=== PATIENT | male | born 1955 | race Caucasian/White ===

== ENCOUNTER 2019-12-09 16:47 | Inpatient (IN) ==
[2019-12-09 18:11] LABS: ABS Basophils 0.1 10^3/ul (0-0.2); ABS Eosinophils 0.1 10^3/ul (0-0.6); ABS Lymphocytes 1.5 10^3/ul (1.0-4.8); ABS Monocytes 0.6 10^3/ul (0-0.8); Eosinophil % 1.2 %; Hematocrit 40 % (42-52); Hemoglobin 13.5 g/dL (14.0-18.0); Lymphocyte % 21.9 %; Mean Corpuscular HGB Conc 34 g/dL (31-36); Mean Corpuscular Hemoglobin 30 pg (27-31); Mean Corpuscular Volume 88 fL (80-94); Mean Platelet Volume 7.6 fL (7.4-10.4); Nucleated Red Blood Cells % 0.1; Platelet Count 193 10^3/uL (150-450); Red Blood Count 4.51 10^6 /uL (4.18-5.48); Red Cell Distribution Width 15 % (10-15); White Blood Count 6.8 10^3/uL (3.5-10.8)
[2019-12-09 18:27] LABS: ALT 17 U/L (7-52); Albumin 2.9 g/dL (3.2-5.2); Albumin/Globulin Ratio 0.9 (1-3); Alkaline Phosphatase 86 U/L (34-104); BUN/Creatinine Ratio 20.7 (8-20); Blood Urea Nitrogen 25 mg/dL (6-24); CO2 Carbon Dioxide 33 mmol/L (22-32); Calcium 8.7 mg/dL (8.6-10.3); Chloride 95 mmol/L (101-111); Creatine Kinase 53 U/L (10-223); EGFR African American 73.1 (>60); EGFR Non-African American 60.4 (>60); Globulin 3.2 g/dL (2-4); Glucose 154 mg/dL (70-100); Sodium 135 mmol/L (135-145); Total Protein 6.1 g/dL (6.4-8.9)
[2019-12-09] MEDS: NS 0.9% 500 ml BAG 500 ML IV ONE ×2 (18:41→18:54)
[2019-12-09 18:44] LABS: Anion Gap 7 mmol/L (2-11); Troponin I 0.03 ng/mL (<0.03)
[2019-12-09 19:14] LABS: TSH (Thyroid Stimulating Horm) 6.02 mcIU/mL (0.34-5.60)
[2019-12-09 19:19] LABS: Activated Partial Thrombo Time 34.9 seconds (26.0-38.0)
[2019-12-09 19:45] LABS: CKMB ng/mL 3.3 ng/mL (0.6-6.3)
[2019-12-09] MEDS ORDERED: Dextrose 50% Syringe 50 ml 25 GM/50 ML SYRINGE IV PUSH PRN (19:48)
[2019-12-09] MEDS ORDERED: Ondansetron 4 mg VIAL 2 MG/ML 2 ml VIAL IV PRN (19:48)
[2019-12-09] MEDS ORDERED: NS 0.9% 1000 ml BAG 1,000 ML IV SCH (20:00)
[2019-12-09 20:02] LABS: INR 1.34 (0.82-1.09)
[2019-12-09 20:11] LABS: C Reactive Protein 6.43 mg/L (<8.01)
[2019-12-09 20:22] LABS: AST Redraw 24 U/L (13-39); Potassium Redraw 3.6 mmol/L (3.5-5.0)
[2019-12-09] MEDS ORDERED: Iodixanol (CONTRAST) 320 MG/ML 100 ML SDV IV ONE (20:54)
[2019-12-09 21:00] LABS: Erythrocyte Sed Rate 15 mm/Hr (0-19)
[2019-12-09 21:09] LABS: Troponin I 0.03 ng/mL (<0.03)
[2019-12-09] MEDS ORDERED: NS 0.9% 500 ml BAG 500 ML IV ONE (21:58)
[2019-12-09] MEDS ORDERED: Digoxin IV 0.5 MG/2 ML AMP (0.25 MG/ML) IV SLOW PU ONE (22:03)
[2019-12-10] MEDS: Heparin 5000 UNITS/ML VIAL(*) 1 ml vial SUBCUT SCH ×4 (01:44→21:15)
[2019-12-10] MEDS ORDERED: NS 0.9% 500 ml BAG 500 ML IV ONE (02:15)
[2019-12-10 06:14] LABS: ABS Basophils 0.1 10^3/ul (0-0.2); ABS Eosinophils 0.1 10^3/ul (0-0.6); ABS Lymphocytes 1.2 10^3/ul (1.0-4.8); ABS Monocytes 0.4 10^3/ul (0-0.8); Eosinophil % 1.8 %; Hematocrit 35 % (42-52); Hemoglobin 11.7 g/dL (14.0-18.0); Lymphocyte % 24.2 %; Mean Corpuscular HGB Conc 34 g/dL (31-36); Mean Corpuscular Hemoglobin 30 pg (27-31); Mean Corpuscular Volume 88 fL (80-94); Mean Platelet Volume 7.6 fL (7.4-10.4); Platelet Count 172 10^3/uL (150-450); Red Blood Count 3.94 10^6 /uL (4.18-5.48); Red Cell Distribution Width 15 % (10-15); White Blood Count 5.1 10^3/uL (3.5-10.8)
[2019-12-10 06:19] LABS: INR 1.37 (0.82-1.09)
[2019-12-10 06:31] LABS: BUN/Creatinine Ratio 20.4 (8-20); Calcium 7.8 mg/dL (8.6-10.3); EGFR Non-African American 72.7 (>60); Potassium 3.1 mmol/L (3.5-5.0)
[2019-12-10] MEDS: Insulin LISPRO 100 units/ml(*) SUBCUT SCH ×3 (09:33→17:04)
[2019-12-10] MEDS: Aspirin EC 81 mg TAB.EC (enteric coated) PO SCH (09:34)
[2019-12-10] MEDS: Insulin GLARGINE 100 un/ml (*) 10 ml VIAL SUBCUT SCH (09:34)
[2019-12-10] MEDS: DULoxetine DR 60 mg CAP PO SCH (09:35)
[2019-12-10] MEDS: KCL 20 MEQ/100 ML IVPREMIX 20 MEQ/100 ML BAG IV SCH ×3 (11:21→15:19)
[2019-12-10] MEDS: CMCS:Pravastatin 20 mg TAB (NF) PO SCH (11:21)
[2019-12-10 14:07] LABS: Body Fluid Source Peritonial Fluid
[2019-12-10 14:53] LABS: Body Fluid Mono 68 %; Body Fluid Other Cells 14
[2019-12-10] MEDS ORDERED: Metoprolol Tartrate 5 mg VIAL 5 ml VIAL (1 mg/ml) IV ONE (19:58)
[2019-12-11] MEDS: Heparin 5000 UNITS/ML VIAL(*) 1 ml vial SUBCUT SCH ×3 (05:37→21:02)
[2019-12-11 07:22] LABS: ABS Lymphocytes 0.9 10^3/ul (1.0-4.8); ABS Monocytes 0.4 10^3/ul (0-0.8); Eosinophil % 0.7 %; Hematocrit 36 % (42-52); Hemoglobin 12.4 g/dL (14.0-18.0); Lymphocyte % 15.5 %; Mean Corpuscular HGB Conc 34 g/dL (31-36); Mean Corpuscular Hemoglobin 30 pg (27-31); Mean Corpuscular Volume 87 fL (80-94); Mean Platelet Volume 7.6 fL (7.4-10.4); Nucleated Red Blood Cells % 0.1; Platelet Count 169 10^3/uL (150-450); Red Blood Count 4.16 10^6 /uL (4.18-5.48); Red Cell Distribution Width 15 % (10-15); White Blood Count 5.9 10^3/uL (3.5-10.8)
[2019-12-11 07:38] LABS: BUN/Creatinine Ratio 16.8 (8-20); Calcium 8.1 mg/dL (8.6-10.3); EGFR African American 84.2 (>60); EGFR Non-African American 69.6 (>60); Potassium 3.6 mmol/L (3.5-5.0)
[2019-12-11 07:38] LABS: Urine Appearance Clear; Urine Bilirubin Negative (Negative); Urine Blood Negative (Negative); Urine Color Yellow; Urine Glucose Negative (Negative); Urine Ketones Negative (Negative); Urine Nitrite Negative (Negative); Urine Protein Negative (Negative); Urine Specific Gravity 1.027 (1.010-1.030); Urine Urobilinogen Negative (Negative)
[2019-12-11] MEDS: Insulin LISPRO 100 units/ml(*) SUBCUT SCH ×3 (08:23→17:14)
[2019-12-11] MEDS: CMCS:Pravastatin 20 mg TAB (NF) PO SCH (09:07)
[2019-12-11] MEDS: Aspirin EC 81 mg TAB.EC (enteric coated) PO SCH (09:07)
[2019-12-11] MEDS: DULoxetine DR 60 mg CAP PO SCH (09:07)
[2019-12-11] MEDS: Insulin GLARGINE 100 un/ml (*) 10 ml VIAL SUBCUT SCH (09:08)
[2019-12-12] MEDS: Heparin 5000 UNITS/ML VIAL(*) 1 ml vial SUBCUT SCH ×3 (06:12→21:32)
[2019-12-12 06:57] LABS: BUN/Creatinine Ratio 17.3 (8-20); Calcium 8.3 mg/dL (8.6-10.3); EGFR African American 93.2 (>60)
[2019-12-12] MEDS: Insulin LISPRO 100 units/ml(*) SUBCUT SCH ×3 (08:06→17:13)
[2019-12-12] MEDS: Aspirin EC 81 mg TAB.EC (enteric coated) PO SCH (08:22)
[2019-12-12] MEDS: Insulin GLARGINE 100 un/ml (*) 10 ml VIAL SUBCUT SCH (08:23)
[2019-12-12] MEDS: DULoxetine DR 60 mg CAP PO SCH (08:23)
[2019-12-12] MEDS: CMCS:Pravastatin 20 mg TAB (NF) PO SCH (08:25)
[2019-12-12] MEDS ORDERED: Insulin GLARGINE 100 un/ml (*) 10 ml VIAL SUBCUT SCH ×2 (09:00)
[2019-12-13] MEDS: Heparin 5000 UNITS/ML VIAL(*) 1 ml vial SUBCUT SCH ×3 (05:13→21:39)
[2019-12-13 07:06] LABS: BUN/Creatinine Ratio 17.6 (8-20); Calcium 8.1 mg/dL (8.6-10.3); EGFR Non-African American 73.5 (>60)
[2019-12-13] MEDS: Insulin GLARGINE 100 un/ml (*) 10 ml VIAL SUBCUT SCH (07:58)
[2019-12-13] MEDS: CMCS:Pravastatin 20 mg TAB (NF) PO SCH (07:59)
[2019-12-13] MEDS: DULoxetine DR 60 mg CAP PO SCH (08:03)
[2019-12-13] MEDS: Aspirin EC 81 mg TAB.EC (enteric coated) PO SCH (08:04)
[2019-12-13] MEDS: Insulin LISPRO 100 units/ml(*) SUBCUT SCH ×3 (08:07→17:09)
[2019-12-13 16:27] LABS: Lactate Dehydrogenase, BF 121 U/L
[2019-12-13 21:59] LABS: Fluid Type, Albumin PERITONEAL
[2019-12-13 22:02] LABS: Fluid Type, Protein, Total PERITONEAL
[2019-12-14] MEDS: Heparin 5000 UNITS/ML VIAL(*) 1 ml vial SUBCUT SCH ×2 (06:15→12:46)
[2019-12-14] MEDS: Insulin LISPRO 100 units/ml(*) SUBCUT SCH ×3 (07:53→17:17)
[2019-12-14] MEDS: CMCS:Pravastatin 20 mg TAB (NF) PO SCH (08:19)
[2019-12-14] MEDS: Aspirin EC 81 mg TAB.EC (enteric coated) PO SCH (08:20)
[2019-12-14] MEDS: DULoxetine DR 60 mg CAP PO SCH (08:20)
[2019-12-14] MEDS ORDERED: Insulin GLARGINE 100 un/ml (*) 10 ml VIAL SUBCUT SCH (09:00)
[2019-12-14 16:19] VITALS: BP 113/71
[2019-12-14 18:06] LABS: TB1 Ag minus Nil Result 0.01 IU/mL; TB2 Ag minus Nil Result 0.01 IU/mL
[2019-12-14 18:09] LABS: QuantiferonTb Gold Plus Result Negative (Negative)
[2019-12-15] MEDS ORDERED: Insulin GLARGINE 100 un/ml (*) 10 ml VIAL SUBCUT SCH (09:00)
== END 2019-12-14 18:02 | disposition home health service (06) | DRG 312 ==
LOC: MED 16:47 → ED 16:47 → ICU 22:45 → MEDTELE 12-10 14:48
PROVIDERS: ADMIT Nurse Practitioner Family; ATTEND Hospitalist